=== PATIENT | female | born 1950 | race Caucasian/White ===

== ENCOUNTER → 2017-03-24 | Day surgery (SDC) | payer MEDICARE ==
[~2017-03-24] VITALS: Ht 167.6 cm; Wt 135.6 kg
[~2017-03-24] MED LIST: GABAPENTIN300 MG PO; GLYBURIDE2.5 MG PO; HUMALOG100 U/M1 SC; LANTUS INS100 UNITS/ SC; LOVASTATIN20 MG PO; MEDROL 4MG. DOSE4 MG PO; METFORMIN1000 MG PO; PEPCID 20MG TAB20 MG PO; SYNTHROID0.025 MG PO; ZIAC 5 MG-6.251 TAB PO; ZITHROMAX Z PA250 MG PO
--- NOTE | 2017-03-24 10:24 | Operative Note ---
Endoscopy Report Date: 03/24/17 Preoperative diagnosis: Diarrhea, screening colonoscopy Procedure Type of procedure: Total colonoscopy with random biopsies Indications: Patient is a 67-year-old white female referred to the office several weeks from Dr. Chevy Glover for possible upper endoscopy and colonoscopy. She had previously undergone cholecystectomy by Dr. Villegas years ago and she states that she's had chronic diarrhea ever since mostly postprandially with fatty foods. However, recently her symptoms have become significantly more severe. She had had multiple copious watery stools. She's never had previous colonoscopy. She had been having some sharp midepigastric pain but this is now resolved. She does state that she had, along with several family members, gastrointestinal illness and subsequently has had this persistent watery diarrhea. Patient states "I have hemorrhoids". She states that she is "ALLERGIC to anesthesia". She states "we need to talk to anesthesia". After I had seen her in the office a week ago I ordered stool studies. These are negative for any infectious etiology. She has not had any upper abdominal symptoms for quite some time. She still does have strong concerns about anesthesia. Consent was obtained and patient was taken to same-day surgery endoscopy procedure room. She was positioned in a lateral decubitus position. Adequate anesthesia sedation was achieved with anesthesia titration of propofol. Variable stiffness Olympus colonoscope was inserted via the anus. It was advanced to the cecum with some minor difficulty. Ileocecal valve and appendiceal orifice were clearly identified. Colonoscope was withdrawn through the colon with careful surveillance. Random colon biopsies were obtained throughout differentiating RIGHT and LEFT colon. Mucosa appeared normal. There were some minor diverticulosis in the LEFT colon. Retroflexion within the rectum revealed no evidence of any pathologic internal hemorrhoids. Colonoscope was withdrawn. Findings 1. Diverticulosis Follow-Up Follow-Up: Diarrhea may be functional and/or dietary. Will follow-up on the results of the biopsies. at [id number]
[2017-03-24 13:32] VITALS: BP 105/56
== END ==
LOC: SDC 07:30
PROVIDERS: Surgery
PROC: 0DBF8ZX Excision of Right Large Intestine, Via Natural or Artificial Opening Endoscopic, Diagnostic (ICD-10-PCS; 2017-03-24)
PROC: 0DBG8ZX Excision of Left Large Intestine, Via Natural or Artificial Opening Endoscopic, Diagnostic (ICD-10-PCS; principal; 2017-03-24 07:30)
DX: Z12.11 Encounter for screening for malignant neoplasm of colon (principal); K52.9 Noninfective gastroenteritis and colitis, unspecified; K57.30 Diverticulosis of large intestine without perforation or abscess without bleeding; E11.8 Type 2 diabetes mellitus with unspecified complications